=== PATIENT | male | born 1970 | race African-American/Black ===

== ENCOUNTER 2018-09-08 15:31 | Outpatient (RCR) | payer BC ==
--- NOTE | 2018-09-09 01:45 | Consultation ---
DATE OF CONSULTATION: 09/08/2018 HYPERBARIC OXYGEN CONSULTATION CONSULTING PHYSICIAN: Lucas Wright M.D. REASON FOR EVALUATION: Hyperbaric oxygen. HISTORY OF PRESENT ILLNESS: This is an unfortunate 48-year-old male who has a longstanding history of sickle cell disease. The patient as a result has developed pulmonary emboli, also a left foot wound and also has mild pulmonary hypertension. The patient had required blood transfusion three years ago. The patient presents for hyperbaric oxygen evaluation. Denies any diabetes. Denies any leg ulcers. Denies any history of prophylaxis use. The patient currently is otherwise in chronic pain and required chronic narcotic use on a regular basis. PAST MEDICAL HISTORY: Notable for pulmonary hypertension, sickle cell disease, history of blood transfusion, history of anemia, and history of depression/anxiety. MEDICATIONS: Dilaudid, Adderall, Effexor, Abilify, hydroxyurea, fentanyl, Medications otherwise reviewed. SOCIAL HISTORY: Nonsmoker and nondrinker. ALLERGIES: None reported. PHYSICAL EXAMINATION: GENERAL: A well-developed male, comfortable, in no significant distress. VITAL SIGNS: Blood pressure 115/76. HEENT: Fairly negative. Extraocular movements are grossly intact. Otherwise clear. LUNGS: Clear. No rhonchi or wheezes. CARDIAC: Normal S1, S2. Regular rate and rhythm. ABDOMEN: Soft and nontender. EXTREMITIES: No edema. IMPRESSION: 1. Sickle cell disease. 2. Pulmonary hypertension, on Tadifil 3. Pulmonary emboli per history 4. Depression and anxiety. RECOMMENDATIONS: We will attempt to obtain authorization for hyperbaric oxygen, at 2 atmospheres, 90 minutes intervals, for 20 treatments. Care discussed with patient and in detail and reviewed concerns Lucas Wright M.D. DR: MAGDALENO JOB#: [id number] CC: PAUL
== END 2018-10-05 | disposition home or self-care (01) ==
LOC: WCC 15:31
DX: D57.219 Sickle-cell/Hb-C disease with crisis, unspecified (principal); L97.909 Non-pressure chronic ulcer of unspecified part of unspecified lower leg with unspecified severity; Z86.711 Personal history of pulmonary embolism; F32.9 Major depressive disorder, single episode, unspecified; F41.9 Anxiety disorder, unspecified